=== PATIENT | female | born 1985 | race African-American/Black ===

== ENCOUNTER 2017-02-10 10:48 | Emergency (ER) | payer OTHER, MEDICAID ==
[~2017-02-10] VITALS: Ht 167.6 cm; Wt 98.9 kg
[~2017-02-10 10:48] MED LIST: ANT12.5 PO; DIL100 PO; DILANTIN100 MG PO; PHENOBARBITAL PO; PHENOBARBITAL32.4 MG PO; TRAMADOL HCL50 MG PO
[2017-02-10 13:11] LABS: BASOPHIL % 0.5 % (0-2); PLATELET COUNT 304 x10^3mcL (130-400); RED CELL DISTRIBUTION WIDTH 13.6 % (11.5-14.5)
[2017-02-10 13:24] LABS: CALCIUM 8.8 mg/dL (8.5-10.1); CARBON DIOXIDE 24.1 mmol/L (21-32); CHLORIDE SERUM 101 mmol/L (98-107); CREATININE SERUM 0.9 mg/dL (0.6-1.0); GFR1 > 60 mL/min; GLUCOSE SERUM 84 mg/dL (74-106); POTASSIUM SERUM 3.6 mmol/L (3.5-5.1); SODIUM SERUM 138 mmol/L (136-145)
[2017-02-10 13:29] LABS: ALBUMIN 3.6 g/dL (3.4-5.0); ALKALINE PHOSPHATASE 66 U/L (46-116); ALT/SGPT 22 U/L (14-59); AST/SGOT 23 U/L (15-37); BILIRUBIN TOTAL 0.4 mg/dL (0.20-1.00)
[2017-02-10 13:30] LABS: TOTAL PROTEIN, SERUM 8.6 g/dL (6.4-8.2)
[2017-02-10 15:35] VITALS: BP 110/86
== END 2017-02-10 15:35 | disposition home or self-care (01) ==
LOC: ED 10:48
PROVIDERS: Emergency Medicine
DX: O26.891 Other specified pregnancy related conditions, first trimester (principal); R07.89 Other chest pain; R10.13 Epigastric pain; R10.2 Pelvic and perineal pain; M32.9 Systemic lupus erythematosus, unspecified; Z3A.08 8 weeks gestation of pregnancy; Z79.899 Other long term (current) drug therapy
CPT/HCPCS: 83880; J2405; J7030; Q0092

== ENCOUNTER 2017-02-22 19:40 | Emergency (ER) | payer OTHER, MEDICAID ==
[~2017-02-22] VITALS: Ht 167.6 cm; Wt 95.7 kg
[2017-02-22 21:16] LABS: microscopic required? NO
[2017-02-22 21:25] LABS: BASOPHIL % 0.6 % (0-2); PLATELET COUNT 320 x10^3mcL (130-400); RED CELL DISTRIBUTION WIDTH 13.7 % (11.5-14.5)
[2017-02-22 21:27] LABS: UA SPECIFIC GRAVITY 1.025 (1.005-1.035); urine erythrocyte NEGATIVE (NEGATIVE)
[2017-02-22 21:57] VITALS: BP 119/74
== END 2017-02-22 23:37 | disposition home or self-care (01) ==
LOC: ED 19:40
PROVIDERS: Emergency Medicine
DX: O20.0 Threatened abortion (principal); Z3A.09 9 weeks gestation of pregnancy; Z91.013 Allergy to seafood